=== PATIENT | female | born 1955 | race Two or more races ===

== ENCOUNTER 2022-11-29 10:37 | Day surgery (SDC) | payer MEDICARE, OTHER ==
[~2022-11-29] VITALS: Ht 161.3 cm; Wt 123.8 kg
[2022-11-29] VITALS (7 sets, daily range): BP systolic 111–128; BP diastolic 55–68
[~2022-11-29 10:37] MED LIST: ASPI1TAB19 PO; ATEN50TA PO; CALC500T6 PO; CHOL20007 PO; HYDR-4072 PO; HYDR-4798 PO; LISI20TA28 PO
[2022-11-29] MEDS ORDERED: LIDOCAINE 2%HCL (LOCAL ANESTH.) INJ 20ML MDV ONE (12:51)
[2022-11-29] MEDS ORDERED: ANGIOMAX 250 MG VIAL IV ONE (12:52)
[2022-11-29] MEDS ORDERED: MIDAZOLAM HCL 2MG/2ML 2ml VIAL (1mg/ml) ONE (12:53)
[2022-11-29] MEDS ORDERED: fentaNYL CITRATE 100 MCG/2 ML VL ONE (12:53)
[2022-11-29] MEDS ORDERED: SODIUM CHL 0.9% 0 ML ONE (12:53)
== END 2022-11-29 15:35 | disposition home or self-care (01) ==
LOC: CATH 10:37
PROVIDERS: ATTEND Internal Medicine
DX: R94.39 Abnormal result of other cardiovascular function study (principal); R07.89 Other chest pain; I20.9 Angina pectoris, unspecified
CPT/HCPCS: 93458; C1725; C1769; C1894; J1644; J2250; J3010; 99152